=== PATIENT | female | born 1975 | race American Indian/Alaskan Native ===

== ENCOUNTER 2017-03-14 08:55 | Emergency (ER) | payer SELFPAY ==
[2017-03-14] MEDS ORDERED: MORPHINE IV ONE ×2 (12:42→14:35)
[2017-03-14] MEDS ORDERED: NACL 0.9% 1000 ML 1,000 ML IV ONE (12:42)
[2017-03-14] MEDS ORDERED: ZOFRAN IV ONE (12:42)
[2017-03-14 13:06] LABS: Basophils % (Auto) 0.9 % (0.0-1.8); Eosinophils % (Auto) 2.9 % (0.0-4.3); Hematocrit 41.9 % (30.3-42.9); Hemoglobin 14.4 gm/dl (10.1-14.3); Mean Corpuscular HGB Conc 34 % (30-34); Mean Corpuscular Hemoglobin 31 pg (28-32); Mean Corpuscular Volume 89 fl (79-97); Platelet Count 217 K/mm3 (140-440); Red Cell Distribution Width 13.6 % (13.2-15.2); White Blood Count 7.1 K/mm3 (4.5-11.0)
--- NOTE | 2017-03-14 13:08 | Cat Scan Report ---
CT HEAD WITHOUT CONTRAST INDICATION: Headache. COMPARISON: None similar at this institution. FINDINGS: Noncontrast head CT demonstrates normal, symmetric ventricles and sulci without acute or recent infarct, hemorrhage, mass effect or midline shift. No abnormal extra-axial fluid collections. Posterior fossa structures and basilar cisterns appear within normal limits. Symmetric eye globes. Hypoplastic frontal sinuses. Clear remainder aerated paranasal sinuses and mastoid air cells. Intact calvarium. Normal overlying scalp soft tissues. Numerous radiopaque dental material incidentally noted. CONCLUSION: No acute intracranial CT abnormality, as described. Thank you for the opportunity to participate in this patient's care.
--- NOTE | 2017-03-14 13:12 | Emergency Department Report ---
HPI - General Chief Complaint: Headache Time Seen by Provider: 03/14/17 12:20 - HPI HPI: 41-year-old Syrian female presents to the emergency department with complaint of a 2 day history of a right-sided headache. It is associated with some photophobia and some nausea without vomiting. She denies any slurred speech, actual vision changes or any neurological deficits. She does have a history of migraine headaches and it affects the same side but usually she is able to take some Excedrin and go to bed and the headache will resolve. At this time it has not resolved. She also has a past medical history of asthma, non-insulin- dependent diabetes and the Cipro. She took some BC powder yesterday morning and Excedrin yesterday night and the headache has not resolved. No recent travel or sick contacts at home. Her primary care doctor is Dr. Queen. ED Past Medical Hx - Past Medical History Previous Medical History?: Yes Hx Hypertension: Yes Hx Diabetes: Yes Hx Asthma: Yes - Surgical History Past Surgical History?: Yes Additional Surgical History: tubal - Social History Smoking Status: Never Smoker Substance Use Type: Alcohol - Medications Home Medications: Home Medications Medication Instructions Recorded Confirmed Last Taken Type HYDROcodone/APAP 5-325 [Sedley 1 each PO Q6HR PRN #6 tablet 03/14/17 Unknown Rx 5/325] ED Review of Systems ROS: Stated complaint: HEADACHE Other details as noted in HPI Comment: All other systems reviewed and negative Constitutional: denies: chills, fever Eyes: denies: eye pain, eye discharge, vision change ENT: denies: ear pain, throat pain Respiratory: denies: cough, shortness of breath, wheezing Cardiovascular: denies: chest pain, palpitations Gastrointestinal: nausea. denies: abdominal pain, vomiting Genitourinary: denies: urgency, dysuria, discharge Musculoskeletal: denies: back pain, joint swelling, arthralgia Skin: denies: rash, lesions Neurological: headache. denies: weakness Physical Exam - Physical Exam Vital Signs: Vital Signs 03/14/17 03/14/17 09:14 12:39 Temperature 98.6 F Pulse Rate 78 Respiratory 16 16 Rate Blood Pressure 163/117 Blood Pressure 126/67 [Left] O2 Sat by Pulse 100 100 Oximetry Physical Exam: GENERAL: The patient is well-developed well-nourished. HENT: Normocephalic. Atraumatic. Patient has moist mucous membranes. EYES: Extraocular motions are intact. Pupils equal reactive to light bilaterally. NECK: Supple. Trachea is midline. CHEST/LUNGS: Clear to auscultation. There is no respiratory distress noted. HEART/CARDIOVASCULAR: Regular. There is no tachycardia. There is no gallop rub or murmur. ABDOMEN: Abdomen is soft, nontender. Patient has normal bowel sounds. There is no abdominal distention. SKIN: There is no rash. There is no edema. There is no diaphoresis. NEURO: The patient is awake, alert, and oriented. The patient is cooperative. The patient has no focal neurologic deficits. The patient has normal speech. CN 2 through 12 grossly intact. MUSCULOSKELETAL: There is no tenderness or deformity. There is no limitation range of motion. There is no evidence of acute injury. ED Course Vital Signs 03/14/17 03/14/17 09:14 12:39 Temperature 98.6 F Pulse Rate 78 Respiratory 16 16 Rate Blood Pressure 163/117 Blood Pressure 126/67 [Left] O2 Sat by Pulse 100 100 Oximetry ED Medical Decision Making - Lab Data Result diagrams: 03/14/17 12:51 03/14/17 12:51 - Radiology Data Radiology results: report reviewed CT of the head does not show any acute intracranial process including no ischemia, shift, mass, bleeding or skull fracture. - Medical Decision Making 41-year-old female presents with a 2 day history of a headache that is similar in location to her normal migraine headaches but is lasting longer than usual. There is no focal, motor or sensory deficits in her cranial nerves are intact. Labs show hyperglycemia but there does not appear to be any diabetic ketoacidosis. She was given pain medication, nausea meds, fluid, insulin. CT of the head does not show any bleed, shift, mass or any acute process. Vital signs stable throughout her ED course including being afebrile. Reevaluation the patient is feeling much improved. She will follow-up with her primary care physician and if necessary a neurologist regarding migraine headaches. She will return to the ER with any worsening or symptoms or any acute distress. - Differential Diagnosis tension headache, migraine, DKA, HHN K Critical Care Time: No Critical care attestation.: If time is entered above; I have spent that time in minutes in the direct care of this critically ill patient, excluding procedure time. ED Disposition Clinical Impression: Hyperglycemia Headache Qualifiers: Headache type: unspecified Headache chronicity pattern: unspecified pattern Intractability: not intractable Qualified Code(s): R51 - Headache Disposition: DC-01 TO HOME OR SELFCARE Is pt being admited?: No Condition: Stable Instructions: Acute Headache (ED), Diabetic Hyperglycemia (ED) Additional Instructions: Please follow-up with your primary care physician in the next few days. Return to the emergency Department with any worsening of her symptoms or any acute distress. Please try and stay away from foods that are high in start his, carbohydrates and sugar to help with your diabetes. Keep a blood sugar log. You have been prescribed a medication that is sedating and therefore should not be taken prior to driving, working, and responsible for children and in no way should be mixed with alcohol of any quantity. Prescriptions: HYDROcodone/APAP 5-325 [Sedley 5/325] 1 each PO Q6HR PRN #6 tablet PRN Reason: Pain Referrals: PRIMARY CARE, [Primary Care Provider] - SIL[facility]NA Forms: Work/School Release Form(ED) Time of Disposition: 15:45
[2017-03-14 13:21] LABS: Anion Gap 21 mmol/L; BUN/Creatinine Ratio 15.71; Blood Urea Nitrogen 11 mg/dL (7-17); Calcium 9.5 mg/dL (8.4-10.2); Carbon Dioxide 26 mmol/L (22-30); Chloride 92.7 mmol/L (98-107); Glucose 411 mg/dL (65-100); Potassium 3.8 mmol/L (3.6-5.0); Sodium 136 mmol/L (137-145)
[2017-03-14] MEDS ORDERED: MORPHINE ONE (13:25)
[2017-03-14] MEDS ORDERED: TORADOL IV ONE (14:35)
[2017-03-14 16:54] VITALS: BP 142/95
== END 2017-03-14 16:57 | disposition home or self-care (01) ==
LOC: ED 08:55
DX: E11.65 Type 2 diabetes mellitus with hyperglycemia (principal); I10 Essential (primary) hypertension; J45.909 Unspecified asthma, uncomplicated
CPT/HCPCS: 36415; 70450; 80048; 82962; 85025; 96361; 96374; 96375; 99284; J1885; J2270; J2405; J7030; J1815

== ENCOUNTER 2019-02-22 09:41 | Emergency (ER) | payer OTHER, MEDICAID ==
[2019-02-22] MEDS ORDERED: NORCO 5/325 PO ONE ×2 (10:57→11:50)
[2019-02-22] MEDS ORDERED: IBUPROFEN PO ONE (10:57)
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
[2019-02-22] MEDS ORDERED: TORADOL IM ONE (12:40)
[2019-02-22 13:05] VITALS: BP 132/82
== END 2019-02-22 13:04 | disposition home or self-care (01) ==
LOC: ED 09:41
DX: S16.1XXA Strain of muscle, fascia and tendon at neck level, initial encounter (principal); R10.9 Unspecified abdominal pain; I10 Essential (primary) hypertension; E11.9 Type 2 diabetes mellitus without complications; J45.909 Unspecified asthma, uncomplicated; Z98.51 Tubal ligation status; Z79.899 Other long term (current) drug therapy; Z91.013 Allergy to seafood; V89.2XXA Person injured in unspecified motor-vehicle accident, traffic, initial encounter; Y93.89 Activity, other specified; Y92.488 Other paved roadways as the place of occurrence of the external cause; Y99.8 Other external cause status
CPT/HCPCS: 72040; 96372; 99283; J1885

== ENCOUNTER 2019-09-13 09:02 | Outpatient (CLI) | payer OTHER ==
--- NOTE | 2019-09-13 13:59 | Mammography Report ---
DIGITAL SCREENING MAMMOGRAM WITH CAD, 09/13/2019 INDICATION: Routine screening mammography. TECHNIQUE: Digital bilateral 2D mammography was obtained in the craniocaudal and mediolateral obliq ue projections. This examination was interpreted with the benefit of Computer-Aided Detection analysi s. COMPARISON: None. This is a baseline mammogram. FINDINGS: Breast Density: The breasts are heterogeneously dense, which may obscure small masses. Bilateral asymmetries require additional imaging. No architectural distortion or suspicious calcifica tions. IMPRESSION: Bilateral asymmetries requiring additional imaging. Recommend recall for bilateral spot c ompression views and bilateral breast ultrasound if needed. Follow up recommendation: Special View: Spot Category 0: Incomplete. Needs additional imaging evaluation and/or prior mammograms for comparison. A "normal" or negative report should not discourage follow up or biopsy of a clinically significant f inding. A written summary of these findings will be mailed to the patient. The patient will be entered into a mammography reporting system which will generate a reminder letter for the patient's next appointmen t at the appropriate interval. The [employer] recommends yearly mammograms starting at age 40 and continuing as l kyle as a woman is in good health. Breast MRI is recommended for women with an approximate 20-25% or greater lifetime risk of breast cancer, including women with a strong family history of breast or ova ana cancer or who have been treated for Hodgkin's disease. Signer Name: Venkat Smith MD Signed: 09/13/2019 1:55 PM Workstation Name: [id number]
== END 2019-09-13 09:03 | disposition home or self-care (01) ==
LOC: SPVWC 09:02
PROVIDERS: ATTEND Advanced Practice Midwife
DX: Z12.31 Encounter for screening mammogram for malignant neoplasm of breast (principal)
CPT/HCPCS: 77067

== ENCOUNTER 2021-08-07 10:36 | Outpatient (CLI) | payer OTHER ==
[2021-08-07 11:16] LABS: Blood Urea Nitrogen 10 mg/dL (7-17)
--- NOTE | 2021-08-07 12:32 | Cat Scan Report ---
CT ABDOMEN AND PELVIS WITH CONTRAST HISTORY: UMBILICAL HERNIA OMNI 300 100ML. COMPARISON: None. TECHNIQUE: Helical CT images of the abdomen and pelvis were obtained following administration of intr avenous contrast. Sagittal and coronal reformatted images were reviewed. All CT scans at this [facility] are performed using CT dose reduction for ALARA by means of automated exposure control. CONTRAST: Omnipaque 300 100 ml of intravenous contrast administered. FINDINGS: Abdomen/pelvis: A small paraumbilical hernia containing fat is identified just to the left of midlin e. The hernia neck measures approximately 1 cm. The hernia sac measures approximately 2.[address] appearance of the liver, biliary system, pancreas, spleen, kidneys, adrenal glands, bowel loops, vascular structures, uterus, adnexa and bladder are within normal limits. No evidence f or adenopathy, free fluid, free air or fluid collection. Lungs/bones: No significant abnormality. IMPRESSION: Small paraumbilical hernia as described. Otherwise unremarkable exam. Signer Name: Efrain Ken Jr, MD Signed: 08/07/2021 12:28 PM Workstation Name: [id number]
== END 2021-08-07 10:37 | disposition home or self-care (01) ==
LOC: CT 10:36
PROVIDERS: ATTEND Surgery
DX: Z01.89 Encounter for other specified special examinations (principal); K42.9 Umbilical hernia without obstruction or gangrene
CPT/HCPCS: 36415; 74177; 82565; 84520; Q9967